=== PATIENT | male | born 1950 | race Caucasian/White ===

== ENCOUNTER 2016-09-29 11:22 | Emergency (ER) | payer OTHER, MEDICARE ==
[~2016-09-29] VITALS: Ht 177.8 cm; Wt 84.1 kg
[~2016-09-29 11:22] MED LIST: ALLERGY RELIEF4 M1 PO; ATENOLOL; ATENOLOL50 MG PO; BENADRYL50 MG PO; CAL; CALICUM; CIALIS10 MG PO; COLACE100 MG PO; DILANTIN30 MG; DILANTIN30 MG PO; DILAUDID2 MG PO; FLOMAX0.4 MG PO; GLUCOPHAGE500 MG; JANUVIA25 M1 PO; LASIX20 MG PO; LEVO-T125 MCG PO; LEVOTHYROXINE200 MC1 PO; LIPITOR10 MG PO; MAG; METFORMIN HCL500 MG PO; METOLAZONE5 MG PO; OXYCODONE-ACET1 EAC3; PHENYTOIN SODI100 M1; PHENYTOIN SODI100 M1 PO; PRADAXA150 MG; PRADAXA150 MG PO; SIMVASTATIN; SYNTHROID175 MCG PO; SYNTHROID200 MCG; TRICOR145 MG; TRICOR145 MG PO; VIT C; VIT E; VITAMIN C500 M1 PO; VITAMIN D32000 UNI1 PO; WARFARIN SODIUM5 MG PO; XARELTO20 MG PO; ZINC; ZITHROMAX Z-PA250 MG PO; ZOCOR10 MG PO; [UNRECOGNIZED DRUG - OTHER]; [UNRECOGNIZED DRUG - OTHER] PO; [UNRECOGNIZED DRUG - SUPPLY]
[2016-09-29 11:38] VITALS: BP 177/107
[2016-09-29 12:51] LABS: HEMATOCRIT 44.3 % (38.0-50.0); MCH 33.6 PG (29.0-34.0); MCV 96.1 FL (86-99); MEAN PLAT.VOLUME 11.1 uM^3 (9.0-12.4); PLATELET COUNT 104 K/uL (156-360); RBC DIS.WIDTH-CV 12.4 % (11.8-14.6); RBC DIS.WIDTH-SD 43.9 % (39-53); RED BLOOD COUNT 4.61 M/uL (4.00-5.50); WHITE BLOOD COUNT 5.8 K/uL (4.1-10.2)
[2016-09-29 13:00] LABS: PROTHROMBIN TIME 20.6 (9.2-11.2); PTT 34.2 (25-32)
[2016-09-29 13:19] LABS: CHLORIDE 101 mEq/L (99-109); POTASSIUM 4.8 mEq/L (3.7-5.4); SODIUM 139 mEq/L (136-147)
[2016-09-29 13:21] LABS: GLUCOSE 206 mg/dL (70-99)
[2016-09-29 13:22] LABS: ANION GAP 10 MEQ/L (2-14)
[2016-09-29 13:23] LABS: TOTAL BILIRUBIN 0.8 mg/dL (0.0-1.0)
[2016-09-29 13:24] LABS: ALKALINE PHOSPHATASE 70 IU/L (3-129)
[2016-09-29 13:25] LABS: GFR ESTIMATE (CALCULATED) 49 mL/min/
[2016-09-29 13:26] LABS: UREA NITROGEN (BUN) 26 mg/dL (9-23)
== END 2016-09-29 13:56 | disposition home or self-care (01) ==
LOC: EME 11:22
PROVIDERS: Emergency Medicine
DX: S40.812A Abrasion of left upper arm, initial encounter (principal); M54.2 Cervicalgia; S09.90XA Unspecified injury of head, initial encounter; V49.40XA Driver injured in collision with unspecified motor vehicles in traffic accident, initial encounter; E11.9 Type 2 diabetes mellitus without complications; E78.5 Hyperlipidemia, unspecified; I10 Essential (primary) hypertension; Z79.01 Long term (current) use of anticoagulants
CPT/HCPCS: 70450; 80053; 85027; 85610; 85730; 99281; 99284

== ENCOUNTER 2017-01-29 22:40 | Emergency (ER) | payer OTHER, MEDICARE ==
[~2017-01-29] VITALS: Ht 177.8 cm; Wt 84.1 kg
[2017-01-30 01:30] VITALS: BP 156/89
== END 2017-01-30 01:30 | disposition home or self-care (01) ==
LOC: EME 22:40
DX: S70.02XA Contusion of left hip, initial encounter (principal); W01.190A Fall on same level from slipping, tripping and stumbling with subsequent striking against furniture, initial encounter; Y93.E9 Activity, other interior property and clothing maintenance; Y92.009 Unspecified place in unspecified non-institutional (private) residence as the place of occurrence of the external cause; Z79.01 Long term (current) use of anticoagulants; I10 Essential (primary) hypertension; E78.5 Hyperlipidemia, unspecified; Z95.0 Presence of cardiac pacemaker
CPT/HCPCS: 73502; 76881; 99281; 99283